=== PATIENT | female | born 1935 | race Caucasian/White ===

== ENCOUNTER → 2017-02-26 | Outpatient (CLI) | payer OTHER, MEDICARE | LOC: HEART CORB 12:07 | DX: R55 Syncope and collapse (principal) ==

== ENCOUNTER → 2017-03-12 | Outpatient (CLI) | payer OTHER, MEDICARE | LOC: HEART CORB 15:00 | DX: R55 Syncope and collapse (principal) | CPT/HCPCS: 93306 ==